=== PATIENT | female | born 1950 | race Caucasian/White ===

== ENCOUNTER 2018-11-28 13:07 | Emergency (ER) | payer OTHER ==
[~2018-11-28] VITALS: Ht 152.4 cm; Wt 52.9 kg
[2018-11-28 13:12] VITALS: Ht 152.4 cm; Wt 52.9 kg
[2018-11-28] MEDS ORDERED: NICARDipine HCL 30 MG CAPSULE PO ONE (17:00)
[2018-11-28] MEDS ORDERED: LOVA10TA63 PO (17:28)
[2018-11-28] MEDS ORDERED: MONT10TA24 PO (17:29)
[2018-11-28] MEDS ORDERED: TRAM50TA PO (17:30)
[2018-11-28] MEDS ORDERED: LOVA20TA PO (17:31)
[2018-11-28] MEDS ORDERED: ALBU18HF INHALATION (17:32)
[2018-11-28] MEDS ORDERED: ALBU2.5V3 NEB (17:34)
[2018-11-28] MEDS ORDERED: BUDE6HFA INHALATION (17:35)
--- NOTE | 2018-11-28 17:56 | ERD ---
ER Documentation Chief Complaint Chief Complaint headache ; increased blood pressure HPI 68-year-old female with a history of asthma presenting with high blood pressure and headaches that she has been having intermittently. She states that over the past 1 year, she has been told that she has high blood pressure. Today while she was picking up a prescription from the pharmacy, she checked her own blood pressure out of curiosity and her systolic blood pressure was in the 180s. The pharmacy then called her physician and she was told to go to the ER for evaluation. She is denying any chest pain or shortness of breath at this time. She is urinating normally. She is not currently on any medications for hypertension. She does endorse increased stress in her life recently. Her headache is mild, dull, frontal, nonradiating, with no associated nausea, vomiting, vision disturbance, focal weakness or numbness. ROS All systems reviewed and are negative except as per history of present illness. Medications Home Meds Reported Medications Budesonide-Formoterol Fumarate* (Symbicort*) 160-4.5 Hfa.aer.ad, 2 PUFF INHALATION BID, #1 EACH 11/28/18 Albuterol Sulfate* (Albuterol Sulfate* Neb) 0.083%-3 Ml Neb, 2.5 MG NEB Q4H PRN for WHEEZING AND SOB, #30 VIAL 11/28/18 Albuterol Sulfate* (Ventolin HFA*) 18 Gm Hfa.aer.ad, 2 PUFF INHALATION Q4H, #1 INHALER 11/28/18 Lovastatin* (Lovastatin*) 20 Mg Tablet, 20 MG PO HS, TAB 11/28/18 Tramadol Hcl* (Ultram*) 50 Mg Tablet, 50 MG PO PRN PRN for PAIN, TAB 11/28/18 Montelukast Sodium* (Montelukast Sodium*) 10 Mg Tablet, 10 MG PO QHS, #30 TAB 11/28/18 Discontinued Reported Medications Lovastatin* (Lovastatin*) 10 Mg Tablet, 10 MG PO HS, TAB 11/28/18 Allergies Allergies: Coded Allergies: No Known Allergy (Unverified , 11/28/18) PMhx/Soc History of Surgery: No Anesthesia Reaction: No Hx Neurological Disorder: No Hx Respiratory Disorders: No Hx Cardiac Disorders: Yes (HTN) Hx Psychiatric Problems: No Hx Miscellaneous Medical Probl: No Hx Alcohol Use: No Hx Substance Use: No Hx Tobacco Use: No Smoking Status: Never smoker FmHx Family History: coronary disease; No diabetes Physical Exam Vitals Vital Signs Date Temp Pulse Resp B/P (MAP) Pulse Ox O2 O2 Flow FiO2 Time Delivery Rate 11/28/18 102 24 135/76 98 Room Air 18:57 (95) 11/28/18 108 18 193/91 100 18:15 (125) 11/28/18 98.2 98 19 192/93 97 13:12 (126) Physical Exam Const: No acute distress Head: Atraumatic Eyes: Normal Conjunctiva, PERRLA, EOMI, no nystagmus ENT: Normal External Ears, Nose and Mouth. Neck: Full range of motion. No meningismus. Resp: Clear to auscultation bilaterally Cardio: Regular rate and rhythm, no murmurs. 2+ distal pulses Abd: Soft, non tender, non distended. Normal bowel sounds Skin: No petechiae or rashes Back: No midline or flank tenderness Ext: No cyanosis, or edema Neur: Awake and alert, oriented x3, cranial nerves intact, strength and sensations intact in all 4 extremities. Normal gait. Psych: Normal Mood and Affect Result Diagram: 11/28/18 1724 11/28/18 1724 Results 24 hrs Laboratory Tests Test 11/28/18 17:24 White Blood Count 8.8 10^3/ul Red Blood Count 6.31 10^6/ul Hemoglobin 11.7 g/dl Hematocrit 39.0 % Mean Corpuscular Volume 61.8 fl Mean Corpuscular Hemoglobin 18.5 pg Mean Corpuscular Hemoglobin Concent 30.0 g/dl Red Cell Distribution Width 15.0 % Platelet Count 348 10^3/UL Mean Platelet Volume 9.9 fl Immature Granulocytes % 0.300 % Neutrophils % 56.8 % Lymphocytes % 29.0 % Monocytes % 8.4 % Eosinophils % 4.6 % Basophils % 0.9 % Nucleated Red Blood Cells % 0.0 /100WBC Immature Granulocytes # 0.030 10^3/ul Neutrophils # 5.0 10^3/ul Lymphocytes # 2.6 10^3/ul Monocytes # 0.7 10^3/ul Eosinophils # 0.4 10^3/ul Basophils # 0.1 10^3/ul Nucleated Red Blood Cells # 0.0 10^3/ul Sodium Level 141 mmol/L Potassium Level 3.6 mmol/L Chloride Level 105 mmol/L Carbon Dioxide Level 28 mmol/L Anion Gap 8 Blood Urea Nitrogen 19 mg/dl Creatinine 0.78 mg/dl Est Glomerular Filtrat Rate mL/min > 60 mL/min Glucose Level 87 mg/dl Calcium Level 9.9 mg/dl Troponin I < 0.012 ng/ml Current Medications Medications Dose Sig/Tami Start Time Status Last (Trade) Ordered Route PRN Stop Time Admin Dose Reason Admin Nicardipine 30 mg ONCE ONCE 11/28/18 DC 11/28/18 HCl PO 17:00 11/28/18 17:36 (Cardene) 17:01 Procedures/MDM EMERGENT LABS AND DIAGNOSTIC STUDIES: Lab Results above were reviewed and interpreted by me. CBC: Mild anemia, no evidence of infection BMP: No evidence of electrolyte abnormality, renal failure, hypoglycemia Troponin within normal limits, not indicative of cardiac ischemia 12-lead EKG was interpreted by Irasema Tamayo MD: Normal Sinus Rhythm Normal axis Normal intervals No acute ST or T wave changes suggestive of acute ischemia or STEMI. Radiology Results as interpreted by Radiology below were reviewed by Edin Tamayo MD: Chest x-ray shows no acute abnormalities Initial Nursing notes reviewed. Previous Medical Records requested via the Electronic Health Record. EMERGENCY DEPARTMENT COURSE / MEDICAL DECISION MAKING: Patient's blood pressure was elevated (>120/80) but appears stable without evidence of hypertensive emergency or urgency. Cardene given orally with improvement of BP. The patient was counseled about the risks of hypertension and urged to pursue outpatient monitoring and therapy within a week with their primary care physician. Departure Diagnosis: Primary Impression: Hypertension Hypertension type: unspecified Qualified Codes: I10 - Essential (primary) hypertension Condition: Stable ALANNA TAMAYO MD Nov 28, 2018 17:56
[2018-11-28 18:57] VITALS: BP 135/76; PULSE 102; RESP 24
== END 2018-11-28 18:58 | disposition home or self-care (01) ==
LOC: E/R 13:07
DX: I10 Essential (primary) hypertension (principal); J45.909 Unspecified asthma, uncomplicated
CPT/HCPCS: 36415; 71045; 80048; 84484; 85025; 93005